=== PATIENT | female | born 1970 | race Two or more races ===

== ENCOUNTER 2018-10-19 17:37 | Emergency (ER) | payer OTHER ==
[~2018-10-19] VITALS: Ht 175.3 cm; Wt 96.6 kg
--- NOTE | 2018-10-19 17:42 | NUR ---
PATIENT C/O BILAT UPPER/LOWER EXTREMITY NUMBNESS AND GENERALIZED WEAKNESS SINCE LAST NIGHT XTODAY WHILE AT CLASS. VSS, NAD, WILL CONTINUE TO MONITOR.
[2018-10-19] MEDS ORDERED: ALPRAZOLAM 0.5 MG TABLET ONE (18:20)
[2018-10-19] MEDS ORDERED: KETOROLAC TROMETHAMINE 15 MG/ML VIAL ONE (18:20)
[2018-10-19] MEDS ORDERED: ALPRAZOLAM 0.5 MG TABLET PO ONE (18:30)
[2018-10-19] MEDS ORDERED: IV NS 0.9% 1,000 ML BAG IV ONE (18:30)
[2018-10-19] MEDS ORDERED: KETOROLAC TROMETHAMINE INJ 30 MG/ML VIAL IV ONE (18:30)
[2018-10-19 18:35] LABS: BASOPHILS % (AUTO) 0.7 % (0.0-2.0); EOSINOPHILS % (AUTO) 1.7 % (0.0-6.0); HEMATOCRIT 43 % (33-45); HEMOGLOBIN 14.3 g/dL (11.5-14.8); LYMPHOCYTES # (AUTO) 1.4 /CMM (0.8-4.8); LYMPHOCYTES % (AUTO) 22.9 % (20.0-44.0); MEAN CORPUSCULAR HGB CONC 34 g/dl (31.0-36.0); MEAN CORPUSCULAR VOLUME 90 fL (82-100); MONOCYTES # (AUTO) 0.4 /CMM (0.1-1.30); MONOCYTES % (AUTO) 7.1 % (2.0-12.0); NEUTROPHILS # (AUTO) 4.2 /CMM (1.8-8.9); NEUTROPHILS % (AUTO) 67.6 % (43.0-81.0); PLATELET COUNT (AUTO) 339 /CMM (150-450); RED BLOOD CELL COUNT(AUTO) 4.72 MIL/uL (4.0-5.2); WHITE BLOOD COUNT (AUTO) 6.2 K/uL (4.3-11.0)
--- NOTE | 2018-10-19 18:36 | NUR ---
PATIENT REFUSED MEDICATIONS EXCEPT FOR IV FLUIDS. DR TURNER MADE AWARE.
[2018-10-19 18:43] LABS: CALCIUM, SERUM 8.8 mg/dL (8.5-10.1); CARBON DIOXIDE 27 mmol/L (21-32); CHLORIDE 103 mmol/L (98-107); CREATININE 0.9 mg/dL (0.6-1.3); GLUCOSE 104 mg/dL (74-106); POTASSIUM 3.3 mmol/L (3.5-5.1); SODIUM SERUM 140 mmol/L (136-145); UREA NITROGEN, BLOOD 10 mg/dL (7-18)
[2018-10-19 18:48] LABS: ALANINE AMINOTRANSFERASE 82 U/L (12-78); ALBUMIN 3.6 g/dL (3.4-5.0); ALKALINE PHOSPHATASE 98 U/L (46-116); ASPARTATE AMINOTRANSFERASE 58 U/L (15-37); BILIRUBIN,DIRECT 0.1 mg/dL (0.0-0.2); BILIRUBIN,TOTAL 0.5 mg/dL (0.2-1.0); LIPASE 124 U/L (73-393); TOTAL PROTEIN, SERUM 7.3 g/dL (6.4-8.2)
--- NOTE | 2018-10-19 18:59 | NUR ---
PATIENT RESTING AT THIS TIME, DENIES PAIN OR DISCOMFORT. NAD, VSS. WILL CONTINUE TO MONITOR.
[2018-10-19 19:18] LABS: APPEARANCE,URINE Clear (CLEAR); BILIRUBIN,URINE Negative (NEGATIVE); BLOOD, URINE Negative Ery/uL (NEGATIVE); COLOR,URINE Yellow (YELLOW); KETONES,URINE Negative (NEGATIVE); LEUKOCYTE ESTERASE ,URINE Negative (NEGATIVE); NITRITE, URINE Negative (NEGATIVE); PH,URINE 7.5 (5.0-8.0); PROTEIN,URINE Negative (NEGATIVE); UGLUCOSE Negative (NEGATIVE); UROBILINOGEN,URINE 0.2 EU/dL (0.2)
--- NOTE | 2018-10-19 19:26 | NUR ---
CONTINUITY OF CARE ENDORSED TO TERRANCE WAGONER. PATIENT IN STABLE CONDITION, LABS STILL PENDING.
--- NOTE | 2018-10-19 19:35 | NUR ---
REceived pt from CIARAN Madden. Pt is resting in bed comfortably, awaiting to be discharged
[2018-10-19 20:23] VITALS: BP 110/67
--- NOTE | 2018-10-19 20:25 | NUR ---
Patient discharged to home in stable condition. Written and verbal after care instructions and prescription given. Patient verbalizes understanding of instruction.IV removed. Catheter intact and site benign. Pressure and 4x4 applied to site. No bleeding noted. Pt ambulatory with a steady gait
== END 2018-10-19 19:50 | disposition home or self-care (01) ==
LOC: ER 17:43
DX: R10.13 Epigastric pain (principal); F41.9 Anxiety disorder, unspecified; R20.2 Paresthesia of skin; Z88.0 Allergy status to penicillin
CPT/HCPCS: 36415; 80048; 80076; 81001; 83690; 84484; 84703; 85025; 93005; 99284; A4606; J7030; Z7610; 81000-TC; J1885

== ENCOUNTER 2025-05-24 13:05 | Emergency (ER) | payer OTHER ==
[~2025-05-24] VITALS: Ht 175.3 cm; Wt 95.3 kg
[2025-05-24] MEDS ORDERED: LIDOCAINE 5% (PATCH) 1 EA PATCH TP ONE ×2 (14:27→14:53)
[2025-05-24] MEDS ORDERED: KETOROLAC TROMETHAMINE 15 MG/ML VIAL ONE (14:28)
[2025-05-24] MEDS ORDERED: ACETAMINOPHEN ES 500 MG TABLET ONE (14:28)
[2025-05-24] MEDS: KETOROLAC TROMETHAMINE 15 MG/ML VIAL IM ONE (14:51)
[2025-05-24] MEDS: ACETAMINOPHEN ES 500 MG TABLET PO ONE (14:52)
[2025-05-24] MEDS: LIDOCAINE 5% (PATCH) 1 EA PATCH TP SCH ×2 (14:52→14:58)
[2025-05-24] MEDS ORDERED: LIDO30AD10 TP (15:25)
[2025-05-24 15:37] VITALS: BP 137/89; TEMP 98.6; O2SAT 99
== END 2025-05-24 15:38 | disposition home or self-care (01) ==
LOC: ER 13:24
DX: S19.9XXA Unspecified injury of neck, initial encounter (principal); M25.511 Pain in right shoulder; M54.2 Cervicalgia; M54.50 Low back pain, unspecified; Z88.0 Allergy status to penicillin; Z88.1 Allergy status to other antibiotic agents; Z90.710 Acquired absence of both cervix and uterus; V49.49XA Driver injured in collision with other motor vehicles in traffic accident, initial encounter; Y93.89 Activity, other specified; Y92.415 Exit ramp or entrance ramp of street or highway as the place of occurrence of the external cause; Y99.8 Other external cause status
CPT/HCPCS: 99284; 71045; 96372; 72040; 72100; 72074; 73030; J1885